=== PATIENT | male | born 1985 | race Caucasian/White ===

== ENCOUNTER → 2020-11-15 | Outpatient (CLI) | payer OTHER | END | disposition home or self-care (01) | LOC: CFH 07:30 | PROVIDERS: ATTEND Internal Medicine Cardiovascular Disease | DX: R00.2 Palpitations (principal) | CPT/HCPCS: 93306; 93356 ==

== ENCOUNTER 2020-12-03 19:53 | Emergency (ER) | payer OTHER ==
[~2020-12-03] VITALS: Ht 188 cm; Wt 87.3 kg
--- NOTE | 2020-12-03 20:23 | NUR ---
PT. TO ROOM FROM LOBBY AT THIS TIME. PT. STATES HE ATE RAW MILK WEED PODS BECAUSE HIS FRIEND TOLD HIM ABOUT THEM AND "THEY ARE DELICIOUS". PT. TO ED AFTER TOLD TO COME BY POISON CONTROL TOLD HIM TO. PT. STATES HE FEELS FINE AND DENIES ANY PAIN/DISCOMFOT. DENIES N/V/D/ ABD PAIN.
--- NOTE | 2020-12-03 20:35 | NUR ---
PT. STATES "I DID NOT DO THIS IN AN ATTEMPT TO HARM MYSELF".
[2020-12-03 20:54] LABS: BASOPHILS % (AUTO) 0 % (0-1); EOSINOPHILS % (AUTO) 1 % (1-7); LYMPHOCYTES % (AUTO) 22 % (22-44); MEAN CORPUSCULAR HGB CONC 34.8 g/dL (33.2-36.2); MONOCYTES % (AUTO) 4 % (2-9); NEUTROPHILS % (AUTO) 73 % (42-75); PLATELET COUNT 325 x10^3/uL (130-400); RED BLOOD COUNT 4.62 x10^6/uL (4.38-5.82); RED CELL DISTRIBUTION WIDTH 12.6 % (9.4-14.8)
[2020-12-03 21:02] LABS: ALBUMIN 3.9 g/dL (3.4-5.0); CALCIUM 8.8 mg/dL (8.5-10.1)
[2020-12-03 21:08] LABS: ALANINE AMINOTRANSFERASE 23 U/L (12-78); ALKALINE PHOSPHATASE 70 U/L (45-117); BILIRUBIN,TOTAL 0.7 mg/dL (0.2-1.0); CREATININE 0.76 mg/dL (0.7-1.3); TOTAL PROTEIN 7.2 g/dL (6.4-8.2); TROPONIN I < 0.015 ng/mL (0.000-0.045)
[2020-12-03 21:10] LABS: ANION GAP 4 mmol/L (5-15); CHLORIDE 107 mmol/L (98-107)
--- NOTE | 2020-12-03 21:57 | NUR ---
report from [facility]. pt moved to room 3. Addendum: 12/03/20 at 2205 by PATRICIA SGAE Guerrero
--- NOTE | 2020-12-03 21:58 | NUR ---
pt reports no pain, no n/v. pt feeling well. ambulatory. A+Ox4
--- NOTE | 2020-12-03 22:55 | NUR ---
[facility] control contacted. recommends observation for 8 hours post ingestion. s/s to watch for are n/v/abd pain. recommend repeat ekg due to the toxin in the plant called cardiac glycoside toxin. severe toxemia would cause increase potassium. can cause bradycardia/ heart blocks. Spoke with an RN named Lisa and case number is [id number]
--- NOTE | 2020-12-03 23:47 | NUR ---
pt resting on gurney. denies any symptoms. pillow provided.
--- NOTE | 2020-12-03 23:48 | NUR ---
pt updated on POC. will monitor him until 0200. will repeat an EKG closer to Discharge.
--- NOTE | 2020-12-04 00:19 | NUR ---
report to helen carlos
--- NOTE | 2020-12-04 00:20 | NUR ---
REPORT FROM JONN CAZARES
--- NOTE | 2020-12-04 01:41 | NUR ---
PT UP AMBULATING. HAS STEADY INDEPENDENT GAIT. STATES "I FEEL FINE". AWARE
[2020-12-04 02:28] VITALS: BP 107/71
== END 2020-12-04 02:30 | disposition home or self-care (01) ==
LOC: ED 20:23
DX: T62.8X1A Toxic effect of other specified noxious substances eaten as food, accidental (unintentional), initial encounter (principal); R00.1 Bradycardia, unspecified; Y92.9 Unspecified place or not applicable
CPT/HCPCS: 36415; 80053; 84484; 85025; 93005; 99285